=== PATIENT | male | born 1990 | race Caucasian/White ===

== ENCOUNTER → 2016-09-14 | Outpatient (REF) | payer OTHER ==
[2016-09-14 09:44] LABS: % NORMAL FORMS 12 % (>=4); IMMOTILITY 28 %; NON PROGRESSIVE MOTILITY (c) 19 %; PROGRESSIVE MOTILITY (a) 53 % (>=32); SPERM ABNORMAL FORMS WBC'S NOTED; TOTAL FUNCTIONAL 3.6 M/Ejac.; TOTAL MOTILITY 72 % (>=40); TOTAL PROGRESSIVE SPERM 13.3 M/Ejac.
== END ==
LOC: M LAB REF 09:36
PROVIDERS: ATTEND Student in an Organized Health Care Education/Training Program
DX: Z31.41 Encounter for fertility testing (principal)

== ENCOUNTER → 2016-10-14 | Outpatient (CLI) | payer OTHER ==
[~2016-10-14] MED LIST: CONRAY-43 43% 50ML VIAL (Q9960) As Ordered ONE
--- NOTE | 2016-10-14 09:42 | REP ---
MR ARTHROGRAM LEFT SHOULDER: TECHNIQUE: Axial T2 fat sat, coronal oblique T1, T2 fat sat, post arthrogram axial T1 fat sat, proton density, coronal oblique T1 fat sat, T2 sat, sagittal oblique T2 fat sat, ABER T1 fat sat. The rotator cuff tendons appear intact. However, on the post arthrogram images there is extension of intra-articular contrast into the region of the rotator interval with a focal area of bulging of contrast into this region, with smooth margins. The area of bulging is about 1 cm in diameter. There is no definite free leakage of contrast from the joint and the appearance is more consistent with laxity of the rotator interval rather than a tear. I cannot identify the coracohumeral ligament and this may be torn. I do not see significant hypertrophic changes at the acromioclavicular joint and the acromion is not hooked in shape. The biceps tendon is within the bicipital groove without significant tenosynovitis. There is no Hill-Sach's deformity. The deltoid muscle demonstrates no abnormal signal. There is a tear of the anterior labrum at its superior aspect which also undermines the biceps labral complex. There is an adjacent paralabral cyst anteriorly measuring 4 x 10 x 4 mm. There is no bone marrow edema or occult fracture. There is mild fluid in the subacromial bursa. IMPRESSION: Focal extension of contrast into the region of the rotator interval without free extravasation suggests laxity of the rotator interval rather than a tear. I cannot identify the coracohumeral ligament and I suspect this may be torn. Rotator cuff tendons are intact. There is a tear of the anterior labrum superior aspect with extension into the base of the biceps labral complex. There is an adjacent anteriorly located paralabral cyst 4 x 10 x 4 mm. Mild fluid in the subacromial bursa may represent an element of bursitis. Signed by Brad Pedraza MD 10/14/2016 12:17 P
--- NOTE | 2016-10-15 10:01 | REP ---
Procedure: Left shoulder arthrogram The procedure was performed under the direct supervision of Dr. Pedraza. History: Left shoulder pain The benefits and risks including but not limited to pain, infection, bleeding and anaphylaxis were explained to the patient and informed consent was obtained. Technique: The of the left glenohumeral joint space was localized using fluoroscopic guidance. The skin was prepped and draped in a sterile fashion. 1% lidocaine was used as a local anesthetic. Using fluoroscopic guidance a 22 gauge spinal needle was inserted and advanced into the joint. 0.5 ml of Conray 43 was injected to verify placement. 11 ml of a solution containing 20 ml of sterile saline and 0.15 ml of ProHance was injected into the joint. The needle was removed and the patient was taken to MRI for postprocedural imaging. The the patient tolerated the procedure well and there were no immediate complications. 2 seconds of fluoro time was utilized for this procedure. Reviewed by ITALO Tamayo 10/14/2016 02:03 PSigned by Brad Pedraza MD 10/15/2016 09:53 A
== END | disposition home or self-care (01) ==
LOC: M RADPRO 06:55
PROVIDERS: ATTEND Family Medicine
DX: M75.91 Shoulder lesion, unspecified, right shoulder (principal); S43.432A Superior glenoid labrum lesion of left shoulder, initial encounter; X58.XXXA Exposure to other specified factors, initial encounter; Y92.89 Other specified places as the place of occurrence of the external cause; Y93.89 Activity, other specified; Y99.8 Other external cause status; M25.412 Effusion, left shoulder
CPT/HCPCS: 23350; 73223; 77002; A9576; Q9960